=== PATIENT | female | born 1980 | race African-American/Black ===

== ENCOUNTER 2018-04-11 08:19 | Emergency (ER) | payer OTHER, MEDICAID ==
[~2018-04-11] VITALS: Ht 167.6 cm; Wt 75.0 kg
[2018-04-11] MEDS ORDERED: ACETAMINOPHEN WITH CODEINE 300/30MG TABLET PO ONE (09:00)
[2018-04-11 09:11] VITALS: BP 163/99
== END 2018-04-11 10:34 | disposition home or self-care (01) ==
LOC: ER 08:51
DX: S10.0XXA Contusion of throat, initial encounter (principal); S00.03XA Contusion of scalp, initial encounter; Y04.0XXA Assault by unarmed brawl or fight, initial encounter; Y93.89 Activity, other specified; Y92.89 Other specified places as the place of occurrence of the external cause; Y99.8 Other external cause status
CPT/HCPCS: 99283